=== PATIENT | female | born 1945 | race Hispanic/Latino ===

== ENCOUNTER 2020-12-13 17:58 | Emergency (ER) | payer OTHER, MEDICARE ==
[2020-12-13] MEDS ORDERED: Ibuprofen 200 MG TAB ONE (18:52)
== END 2020-12-13 19:57 | disposition home or self-care (01) ==
LOC: ERS 17:58
DX: S46.912A Strain of unspecified muscle, fascia and tendon at shoulder and upper arm level, left arm, initial encounter (principal); S29.011A Strain of muscle and tendon of front wall of thorax, initial encounter; E03.9 Hypothyroidism, unspecified; E78.5 Hyperlipidemia, unspecified; E78.00 Pure hypercholesterolemia, unspecified; I10 Essential (primary) hypertension; V40.6XXA Car passenger injured in collision with pedestrian or animal in traffic accident, initial encounter
CPT/HCPCS: 71045